=== PATIENT | female | born 1945 | race Caucasian/White ===

== ENCOUNTER 2016-09-17 17:32 | Emergency (ER) | payer OTHER ==
[~2016-09-17] VITALS: Ht 170.2 cm; Wt 69.4 kg
[~2016-09-17 17:32] MED LIST: AMLODIPINE BESYL5 M1 PO; CARAFATE1 G1 PO; CELEBREX100 M1 PO; COMBIGAN EYE DRO5 ML; CRESTOR40 M2 PO; CYCLOBENZAPRINE10 M1 PO; FOLIC ACID1 M1 PO; LATANOPROST2.5 ML OPH; LEVSIN0.125 M1 PO; NEXIUM40 M1 PO; SPIRIVA18 MCG INH; TRAMADOL HCL50 M1 PO; WARFARIN SODIUM5 M1 PO
--- NOTE | 2016-09-17 18:30 | ED CARDIAC/CP/PALPITATIONS ---
History of Present Illness General Chief Complaint: Chest Pain Stated Complaint: CP Source: patient, old records Exam Limitations: no limitations Vital Signs & Intake/Output Vital Signs & Intake/Output Vital Signs Date Time Temp Pulse Resp B/P B/P Pulse O2 O2 Flow FiO2 Mean Ox Delivery Rate 09/17 2001 97.4 83 18 98/66 96 09/17 1759 97.7 75 16 123/77 96 Room Air ED Intake and Output 09/18 0000 09/17 1200 Intake Total 0 Output Total Balance 0 Intake, Oral 0 Patient 153 lb Weight Allergies Coded Allergies: acetaminophen (From PERCOCET) (Intermediate, GI UPSET 10/09/15) aspirin (From PERCODAN) (Intermediate, GI UPSET 10/09/15) oxycodone (From PERCODAN) (Intermediate, GI UPSET 10/09/15) Uncoded Allergies: SELDANE (?ANTIHISTAMINE) (Mild, HEADACHES 05/06/12) Reconcile Medications Amlodipine Besylate 5 MG TABLET 1 TAB PO DAILY HEART (Reported) Brimonidine Tartrate/Timolol (Combigan Eye Drops) 5 ML DROPS EYE PROBLEMS ( Reported) Celecoxib (Celebrex) (Unknown Strength) CAPSULE (Unknown Dose) PO BID PRN PAIN (Reported) Cyclobenzaprine HCl 10 MG TABLET 1 TAB PO QPM PRN SPASM Esomeprazole (Nexium) 40 MG CAPSULE.DR 1 CAP PO DAILY GI (Reported) Folic Acid 1 MG TABLET 1 TAB PO DAILY SUPPLEMENT (Reported) Hyoscyamine (Levsin) 0.125 MG TABLET 1 TAB PO Q4 ABDOMINAL SPASMS Latanoprost 2.5 ML DROPS 1 GTT OPH QPM EYE PROBLEMS (Reported) Rosuvastatin Calcium (Crestor) 40 MG TABLET 1 TAB PO DAILY CHOLESTEROL ( Reported) Sucralfate (Carafate) 1 GM TABLET 1 TAB PO 4 TIMES/DAY GASTRITIS Tiotropium Emporium (Spiriva) 18 MCG CAP.W.DEV 1 CAP INH DAILY BREATHING PROBLEMS (Reported) Tramadol HCl 50 MG TABLET 1 TAB PO Q6 PRN BREAKTHROUGH PAIN Warfarin Sodium 5 MG TABLET 1 TAB PO 1700 BLOOD THINNER (Reported) Triage Note: PT STATES SHE HAS BEEN HAVING CHEST PAIN AND EPIGASTRIC AREA PAIN THAT HAS BEEN ON AND OFF FOR A FEW DAYS. PT STATES SHE WAS JUST SITTING AT THE LIBRARY AND SHE BEGAN TO HAVE SHARP PAINS. Triage Nurses Notes Reviewed? yes Onset: Abrupt Duration: week(s): (1), gone now, intermittent Timing: recent history Quality/Severity: mild, moderate, burning Location: central, epigastric Radiation: substernal Activities at Onset: none Prior Chest Pain/Card Workup: no prior chest pain Nitro Today/Relief: no nitro taken today Aspirin Today: no aspirin today Associated Symptoms: nausea HPI: 70-year-old female with history of previous DVT on Coumadin hypertension, ibs presents complaining of a one-week history of intermittent epigastric pain radiating into her chest comes on randomly lasting for a few seconds to minutes and resolving on its own. She reports a positive nausea however denies vomiting. No shortness of breath cough or hemoptysis she's been compliant with taking her Coumadin no pain with inspiration no recent immobility or travel no leg swelling or pain. She denies any symptoms at this time she had an episode earlier while sitting at the library. There are no modifying factors otherwise or associated symptoms. (THONY MALIN) Past History Travel History Traveled to [place] past 21 day No Medical History Any Pertinent Medical History? see below for history Cardiovascular: DVT Gastrointestinal: irritable bowel syndrome Blood Disorders: DVT Surgical History Surgical History: non-contributory Psychosocial History What is your primary language Bengali Tobacco Use: Quit >30 days ago ETOH Use: heavy use Illicit Drug Use: denies illicit drug use Family History Hx Contributory? No (THONY MALIN) Review of Systems Review of Systems Constitutional: Reports: see HPI. All Other Systems: Reviewed and Negative Comments Review of systems: See HPI, All other systems negative. Constitutional, no chills no fever, no malaise HEENT: No visual changes no sore throat no congestion Cardiovascular: No chest pain , no palpitation Skin: no rashes, no change in skin Respiratory: No dyspnea no cough no sputum GI: No nausea no vomiting, no diarrhea, : No dysuria Muscle skeletal: No joint pain,no back pain, no neck pain, Neurologic: No numbness no headache Psych: No stress Heme/endocrine: No bruising Immunology: No lymphadenopathy (THONY MALIN) Physical Exam Physical Exam General Appearance: well developed/nourished, alert, awake Cardiovascular: regular rate/rhythm Comments: Well-developed well-nourished person in no acute distress HEENT: Normal EENT exam; PERRL, EOMI,HEAD is atraumatic. moist mucous membranes. Neck: Supple, no lymphadenopathy, normal range of motion Back: Nontender, no CVA tenderness. Full range of motion Cardiovascular: Regular rate and rhythms no murmurs rubs Respiratory: Chest nontender.There were no bony deformities, no asymmetry. No respiratory distress. Patient speaking in full complete sentences. Breath sounds clear to auscultation bilaterally: NO W/R/R Abdomen: Soft, nontender, neg murphys sign nondistended, no appreciable organomegaly. Normal bowel sounds. No rebound/guarding, Extremity: No edema, full range of motion of extremities Neuro: Alert oriented x3, motor sensory normal,There were no obvious focal neurologic abnormalities. Skin: No appreciable rash on exposed skin, skin is warm and dry. Psych: Mood and affect is normal, memory and judgment is normal. Core Measures ACS in differential dx? Yes Severe Sepsis Present: No Septic Shock Present: No (DESTINEE CRUZ,THONY) Progress Differential Diagnosis: AMI, aortic dissection, atrial fibrillation, CHF/pulm edema, costochondritis, pancreatitis, pericarditis, pneumothorax, PSVT, pulmonary embolism, PUD/GERD, PVCs/PACs, gastritisi Plan of Care: Orders Procedure Date/time Status Add-on Test (ER Only) 09/17 1858 Active PARTIAL THROMBOPLASTIN TIME 09/17 1802 Complete PROTHROMBIN TIME 09/17 1802 Complete ETHANOL 09/17 1802 Complete TROPONIN LEVEL 09/17 1736 Complete LIPASE 09/17 1736 Complete COMPREHENSIVE METABOLIC PANEL 09/17 1736 Complete CBC WITHOUT DIFFERENTIAL 09/17 1736 Complete AMYLASE 09/17 173 Complete EKG 09/17 1732 Active Laboratory Tests 09/17/16 1802: Anion Gap 12, Estimated GFR > 60, BUN/Creatinine Ratio 22.9, Glucose 84, Calcium 9.3, Total Bilirubin 0.5, AST 25, ALT 31, Alkaline Phosphatase 64, Troponin I < 0.01, Total Protein 6.7, Albumin 4.2, Globulin 2.5, Albumin/Globulin Ratio 1.7, Amylase 49, Lipase 91, PT 18.9 H, INR 1.81 H, APTT 38 H, CBC w Diff NO MAN DIFF REQ, RBC 4.05 L, MCV 92.8, MCH 30.4, RDW 14.3, MPV 8.9, Gran % 58.0, Lymphocytes % 27.5, Monocytes % 10.0 H, Eosinophils % 3.9, Basophils % 0.6, Absolute Granulocytes 3.6, Absolute Lymphocytes 1.7, Absolute Monocytes 0.6, Absolute Eosinophils 0.2, Absolute Basophils 0, PUBS MCHC 32.7 L, Serum Alcohol < 10.0 Labs ordered old records reviewed patient medicated GI cocktail Case discussed with Dr. Walker 1999 patient reports to feeling improved symptoms resolved with GI cocktail I discussed with the patient at length all of their results. She will take 1-1/ 2 tablets of her Coumadin tomorrow as she took her dose this evening. The pain has been going on intermittently for past several days improved with GI cocktail I do not believe the patient requires repeat troponin given the duration of her symptoms and lack of there right now. I had an extensive conversation regarding need for close follow up with their primary care physician this week as well as return precautions. I answered all of their questions, they feel comfortable with the plan and follow-up care. (THONY MALIN) Initial ED EKG: normal intervals, normal p-waves, normal QRS complex, normal sinus rhythm (70) Prior EKG: unchanged (09/2015) (THONY MALIN) Departure Departure Time of Disposition: 1952 Disposition: HOME OR SELF CARE Condition: Stable Clinical Impression Primary Impression: Gastritis Referrals: GRAZYNA LLAMAS,ANDRE Zarco (PCP/Family) Additional Instructions: Continue taking her Nexium as directed. bland diet, no fatty spicey greasy foods. avoid caffeine, alcohol use. 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 I have also reviewed all the pertinent lab results and diagnostic results. I agree with the findings and the plan of care as documented in the PA's/FIBER DESIGNER's documentation. [X] I have reviewed the ED Record and agree with the PA's/FIBER DESIGNER's documentation. [] Additions or exceptions (if any) to the PAs/FIBER DESIGNER's note and plan are summarized below: [] (NEY LLAMAS,CRISTIAN) Critical Care Note Critical Care Note Critical Care Time: non-applicable (THONY MALIN)
[2016-09-17 18:55] LABS: ABSOLUTE BASOPHIL COUNT 0 /CUMM (0.0-0.2); ABSOLUTE EOSINOPHIL COUNT 0.2 /CUMM (0.0-0.7); ABSOLUTE GRANULOCYTE CT 3.6 /CUMM (1.4-6.5); ABSOLUTE LYMPH COUNT 1.7 /CUMM (1.2-3.4); ABSOLUTE MONOCYTE COUNT 0.6 /CUMM (0.10-0.60); BASOPHIL % 0.6 % (0.0-2.0); EOSINOPHIL % 3.9 % (0-5); HEMATOCRIT 37.6 % (37-47); MEAN CORPUSCULAR HGB 30.4 PG (27.0-31.0); MEAN CORPUSCULAR HGB CONC 32.7 G/DL (33.0-37.0); MEAN CORPUSCULAR VOLUME 92.8 FL (81.0-99.0); MEAN PLATELET VOLUME 8.9 FL (7.4-10.4); PLATELET COUNT 237 /CUMM (130-400); RBC DISTRIBUTION WIDTH 14.3 % (11.5-14.5); RED BLOOD CELL CT 4.05 /CUMM (4.20-5.40); WHITE BLOOD CELL COUNT 6.1 /CUMM (4.8-10.8)
[2016-09-17 19:33] LABS: PT 18.9 SEC (9.4-12.5); PTT 38 SEC (25-37)
[2016-09-17 20:02] VITALS: BP 98/66
== END 2016-09-17 20:22 ==
LOC: ERH 17:32
PROVIDERS: Physician Assistant Medical
DX: K29.70 Gastritis, unspecified, without bleeding (principal); F10.10 Alcohol abuse, uncomplicated; Z79.01 Long term (current) use of anticoagulants
CPT/HCPCS: 93005; 93010; G0480